=== PATIENT | male | born 1955 | race Caucasian/White ===

== ENCOUNTER 2021-07-07 14:44 | Inpatient (IN) | payer OTHER, SELFPAY ==
[~2021-07-07] VITALS: Ht 177.8 cm; Wt 89.8 kg
[2021-07-07 14:49] VITALS: BP 120/70
[2021-07-07] MEDS ORDERED: MORPHINE SULFATE 4 MG/ML SYR IVP ONE (15:10)
[2021-07-07] MEDS ORDERED: ONDANSETRON 4 MG/2 ML VIAL IVP ONE (15:10)
[2021-07-07] MEDS ORDERED: NACL 0.9% 1,000 ML IV ONE ×2 (15:10→15:55)
--- NOTE | 2021-07-07 15:24 | NUR ---
PT TAKEN TO CT VIA W/C
--- NOTE | 2021-07-07 15:30 | NUR ---
Note undone in EDM - 07/07/21 at 1600 by [email or web address] 65 Y MALE BIBA C/O WEAKNESS, FAILURE TO THRIVE, AND HEADAHCE X3 DAYS. PER EMS PT FELL X3 DAYS AGO AND HAD LESLIE PLACED DUE TO LACERATION OCCURING S/P FALL. LESILE NOTED ON PT SCALP AT THIS TIME. PER EMS SUGAR LEVEL WAS 63 IN ROUTE ORAL GLUCOSE WAS GIVEN AND NO CHANGE IN SUGAR. UPON ARRIVAL SUGAR IS CURRENTLY 80. PER PT HIS PASSED SUDDENLY IN , AND HE HAS FELT DEPRESSED SINCE THEN. PT ADMITS HE IS STILL ABLE TO EAT AND DRINK. SKIN DRY AN INTACT, BUT FINGER COOL TO TOUCH AT THIS TIME. PT DENIES ANY CHEST PAIN, SOB, FEVER/CHILLS. PER FIRE PT HAS ULCERS ON BILATERAL LE. PMH: COPD NKA
--- NOTE | 2021-07-07 15:30 | NUR ---
65 Y MALE BIBA C/O WEAKNESS, FAILURE TO THRIVE, AND HEADAHCE X3 DAYS. PER EMS PT FELL X3 DAYS AGO AND HAD LESLIE PLACED DUE TO LACERATION OCCURING S/P FALL. LESLIE NOTED ON PT SCALP AT THIS TIME. PER EMS SUGAR LEVEL WAS 63 IN ROUTE ORAL GLUCOSE WAS GIVEN AND NO CHANGE IN SUGAR. UPON ARRIVAL SUGAR IS CURRENTLY 80. PER PT HIS PASSED SUDDENLY IN , AND HE HAS FELT DEPRESSED SINCE THEN. PT ADMITS HE IS STILL ABLE TO EAT AND DRINK. SKIN DRY AN INTACT, BUT FINGER COOL TO TOUCH AT THIS TIME. PT DENIES ANY CHEST PAIN, SOB, FEVER/CHILLS. PT HAS ACTIVE WET COUGHT AT THIS TIME PMH: COPD NKA
--- NOTE | 2021-07-07 15:33 | NUR ---
PT RETURNED TO BED [address] VIA W/C
--- NOTE | 2021-07-07 15:50 | NUR ---
[facility] CRAMER AND BLOOD WORK COLLECTED AND HANDED TO ARCHITECTURAL JOB CAPTAIN ANGELICA [facility]
--- NOTE | 2021-07-07 15:53 | NUR ---
INFLUENZA SWAB COLLECTED AND HANDED TO CATTLE INSPECTORCHANDRAKANT DOMINGUEZ
--- NOTE | 2021-07-07 16:00 | NUR ---
PT MOVED TO BED 2 FOR ISOLATION
--- NOTE | 2021-07-07 16:10 | NUR ---
Pt report given to FREDY OLGUIN. Transfer of care at this time.
--- NOTE | 2021-07-07 16:20 | NUR ---
RECEIVED REPORT FROM ESTHER DANIEL, ASSUMED CARE AT THIS TIME.
--- NOTE | 2021-07-07 16:43 | NUR ---
PATIENT STATES UNABLE TO PROVIDE URINE AT THIS TIME.
[2021-07-07 16:47] LABS: ALBUMIN 2.4 g/dL (3.4-5.0); CARBON DIOXIDE 20.4 mmol/L (21-32); CREATININE 1.6 mg/dL (0.6-1.3); POTASSIUM 4.4 mmol/L (3.5-5.1); TOTAL BILIRUBIN 3.9 mg/dL (0.0-1.0)
[2021-07-07 16:56] LABS: EOSINOPHILS % (AUTO) 0.1 % (0.0-4.0); LYMPHOCYTES # (AUTO) 0.3 K/uL (2.0-11.5); MEAN CORPUSCULAR HGB CONC 34 g/dL (33-37); MONOCYTES # (AUTO) 0.7 K/uL (0.8-1.0); RED BLOOD CELL COUNT(AUTO) 6.06 MIL/uL (4.20-6.10)
[2021-07-07 17:07] LABS: BASOPHILS % (AUTO) 0.5 % (0.0-2.0); HEMATOCRIT 58.1 % (36-52); HEMOGLOBIN 19.7 g/dL (12.0-18.0); LYMPHOCYTES % (AUTO) 4.8 % (20.5-51.1); MEAN CORPUSCULAR HEMOGLOBIN 33 pg (27-31); MEAN CORPUSCULAR VOLUME 95.9 fL (80-94); MONOCYTES % (AUTO) 9.7 % (1.7-9.3); NEUTROPHILS # (AUTO) 5.8 K/uL (1.8-7.7); NEUTROPHILS % (AUTO) 84.9 % (42.2-75.2); PLATELET COUNT (AUTO) 224 K/uL (140-450); RED CELL DISTRIBUTION WIDTH 13.6 % (11.6-13.7); WHITE BLOOD COUNT (AUTO) 6.9 K/uL (4.8-10.8)
--- NOTE | 2021-07-07 17:53 | NUR ---
SPOKE WITH PT DAUGHTER ANTONINA FOR PT UPDATES WITH PT PERMISSION.
--- NOTE | 2021-07-07 18:00 | NUR ---
SPOKE WITH PATIENTS DAUGHTER ANTONINA TO OBTAIN PATIENTS AT HOME MEDICATION LIST, STATING SHE WILL CALL BACK WITH LIST.
--- NOTE | 2021-07-07 18:11 | NUR ---
PATIENT LYING IN BED WITH EYES CLOSED, DENIES PAIN OR DISCOMFORT. ON BEDSIDE SOCIAL SCIENCES DEPARTMENT CHAIR, WILL CONTINUE TO MONITOR.
[2021-07-07] MEDS ORDERED: ONDANSETRON 4 MG/2 ML VIAL IVP PRN (18:15)
[2021-07-07] MEDS ORDERED: ACETAMINOPHEN 325 MG TAB PO PRN (18:15)
[2021-07-07] MEDS ORDERED: POTASSIUM CHLORIDE 10 MEQ TABER PO PRN (18:15)
[2021-07-07] MEDS ORDERED: MORPHINE SULFATE 4 MG/ML SYR IVP PRN (18:15)
[2021-07-07] MEDS ORDERED: MAGNESIUM OXIDE 400 MG TAB PO PRN (18:15)
--- NOTE | 2021-07-07 18:30 | NUR ---
PATIENT STATES UNABLE TO PROVIDE URINE AT THIS TIME. PROVIDED WITH URINAL
[2021-07-07] MEDS ORDERED: ASPI-1822 PO (18:38)
[2021-07-07] MEDS ORDERED: FURO-572 PO (18:38)
[2021-07-07] MEDS ORDERED: HYDR-5080 PO (18:38)
[2021-07-07] MEDS ORDERED: METF-350 PO (18:38)
[2021-07-07] MEDS ORDERED: SYN.05 PO (18:38)
--- NOTE | 2021-07-07 18:38 | NUR ---
PATIENTS DAUGHTER CALLED WITH PATIENTS MED LIST, MED REC UPDATED.
--- NOTE | 2021-07-07 18:41 | NUR ---
PATIENTS BLOOD PRESSURE READING 82/59 DR. LOO MADE AWARE.
[2021-07-07] MEDS ORDERED: DEXAMETHASONE 4 MG/ML VIAL IVP ONE (18:45)
--- NOTE | 2021-07-07 19:15 | NUR ---
received report from Karen DANIEL for continuity of care
--- NOTE | 2021-07-07 19:15 | NUR ---
Pt report given to THAIS RN. Transfer of care at this time.
--- NOTE | 2021-07-07 19:38 | NUR ---
paged MD Jaime for orders-- awaiting call back.
--- NOTE | 2021-07-07 19:40 | NUR ---
Spoke with Addison BELLA in regards to BP continously in 80s/50s, increased RR, increased WOB, order of O2 saturation with parameters--- received orders of 500cc bolus one time, O2 >90% , and call back for updates on bp and condition of patient
--- NOTE | 2021-07-07 19:45 | NUR ---
CALLED TO BEDSIDE TO ASSESS PT HE DESAT MID 80s AND WAS FOUND ON 6LNC PT WAS PLACED OMN 8L OXY AND SPO2 SLOWLY CLIMBING AND WAS 90% 5 MIN POST OXY PLACEMENT I ALSO SPOKE W/ DR KENNEDY ( [facility] ) AND WAS INFORMED OF OXY PLACEMENT DR KENNEDY PROVIDED VERBAL ORDER FOR O2 >90% AND REQUESTING TO PLACE [facility] IF NEEDED WILL CONTINUE TO MONITOR
--- NOTE | 2021-07-07 19:45 | NUR ---
patient to CT via [facility]
[2021-07-07] MEDS ORDERED: AZITHROMYCIN 500 MG INJ VIAL IV ONE (19:55)
--- NOTE | 2021-07-07 20:00 | NUR ---
PT RETURN FROM CT
[2021-07-07] MEDS: AZITHROMYCIN 500 MG in DEXTROSE 5% 250 ML IV SCH (20:09)
[2021-07-07] MEDS ORDERED: ALBUMIN HUMAN 25% 50 ML IV SCH (20:30)
[2021-07-07] MEDS: NACL 0.9% 500 ML IV SCH ×2 (20:58→23:40)
[2021-07-07] MEDS ORDERED: cefTRIAXone 1,000 MG VIAL ONE (21:02)
--- NOTE | 2021-07-07 23:07 | NUR ---
Paged Addison BELLA-- awaiting for a call.
--- NOTE | 2021-07-08 00:06 | NUR ---
Paged Addison BELLA-- awaiting for a call.
--- NOTE | 2021-07-08 00:09 | NUR ---
MD Jaime called back, orders recieved to continuously monitor patient BP and report if any changes have occured.
--- NOTE | 2021-07-08 04:21 | NUR ---
Patient appears to be resting comfortably in bed-- semi fowlers with o2 optimizer on patient, and eyes closed. Vital Signs within normal limits. Respirations even and unlabored. Safety measures in place, patient placed on monitor and will continue to monitor patient.
--- NOTE | 2021-07-08 04:36 | NUR ---
Daughter Ghazala called about updates on patient-- provided update on patient condition to daughter (Patient aware)
--- NOTE | 2021-07-08 04:59 | NUR ---
Spoke with MD Jaime about low BP and MAP below 65-- was told to continue observing/monitoring patient and will have scientific software developer and underwater hunter trapper take a look at the patient.
--- NOTE | 2021-07-08 07:20 | NUR ---
Pt report given to Winifred RN. Transfer of care at this time.
[2021-07-08] MEDS: MIDODRINE 5 MG TAB PO SCH ×3 (08:24→19:10)
[2021-07-08] MEDS: DEXAMETHASONE 4 MG/ML VIAL IVP SCH (08:25)
[2021-07-08] MEDS: NACL 0.9% 500 ML IV SCH ×2 (08:32→09:51)
--- NOTE | 2021-07-08 08:57 | NUR ---
PT WAS ENCOURAGED AND ASSISTED TO PROVIDE A URINE SAMPLE. PT IS UNABLE AT THIS TIME. WILL ATTEMPT AT A LATER TIME.
--- NOTE | 2021-07-08 09:01 | NUR ---
PER LAB, PT LAB WORK IS PROCESSING AND WILL BE DONE IN 15 MINS
[2021-07-08 09:26] LABS: ANION GAP 17.4 (8-16); CREATININE 1.5 mg/dL (0.6-1.3); POTASSIUM 4.4 mmol/L (3.5-5.1); TOTAL BILIRUBIN 3.1 mg/dL (0.0-1.0)
[2021-07-08 09:36] LABS: BASOPHILS % (AUTO) 0.6 % (0.0-2.0); HEMATOCRIT 50.7 % (36-52); HEMOGLOBIN 17.1 g/dL (12.0-18.0); LYMPHOCYTES # (AUTO) 0.2 K/uL (2.0-11.5); LYMPHOCYTES % (AUTO) 4.7 % (20.5-51.1); MEAN CORPUSCULAR HEMOGLOBIN 32 pg (27-31); MEAN CORPUSCULAR HGB CONC 34 g/dL (33-37); MEAN CORPUSCULAR VOLUME 95.7 fL (80-94); MONOCYTES # (AUTO) 0.5 K/uL (0.8-1.0); MONOCYTES % (AUTO) 9.5 % (1.7-9.3); NEUTROPHILS # (AUTO) 4.5 K/uL (1.8-7.7); NEUTROPHILS % (AUTO) 85.2 % (42.2-75.2); PLATELET COUNT (AUTO) 220 K/uL (140-450); RED CELL DISTRIBUTION WIDTH 13.4 % (11.6-13.7); WHITE BLOOD COUNT (AUTO) 5.3 K/uL (4.8-10.8)
[2021-07-08] MEDS ORDERED: NACL 0.9% 1,000 ML IV ONE (10:00)
--- NOTE | 2021-07-08 10:00 | NUR ---
Patient appears to be resting comfortably in bed. Vital Signs within normal limits. Respirations even and unlabored. All safety measures in place. Resp even and unlabored, no SOB at this time. Reuben light in reach. All needs met and offered to use the restroom.
[2021-07-08] MEDS ORDERED: SODIUM BICARBONATE 650 MG TAB ONE (10:26)
--- NOTE | 2021-07-08 10:40 | NUR ---
# 16 FR Ruby catheter with ml utilizing sterile technique. Immediate return of ml urine noted. Bedside drainage bag placed below level of bladder. Urine sample collected and sent to lab. Pt tolerated procedure .
[2021-07-08] MEDS: ALBUMIN HUMAN 25% 50 ML IV SCH ×2 (10:54→19:11)
[2021-07-08 11:41] LABS: APPEARANCE,URINE CLEAR (CLEAR); COLOR,URINE ORANGE (YELLOW)
[2021-07-08 11:42] LABS: BILIRUBIN,URINE NEGATIVE (NEGATIVE); BLOOD, URINE 1+ (NEGATIVE); LEUKOCYTE ESTERASE ,URINE NEGATIVE (NEGATIVE); NITRITE, URINE NEGATIVE (NEGATIVE); PH,URINE 5.5 (5.0-9.0); UGLUCOSE NEGATIVE (NEGATIVE)
[2021-07-08 11:44] LABS: WBC,URINE 0-5 /HPF (0-5)
--- NOTE | 2021-07-08 13:16 | NUR ---
Spoke to lab, urine marisa be run for UDS now
[2021-07-08 14:30] LABS: BARBITURATE, URINE NEGATIVE ng/ml (NEG <=200); BENZODIAZEPINE, URINE NEGATIVE ng/mL (NEG <=200); CANNABINOID, URINE NEGATIVE ng/mL (NEG <=50); COCAINE, URINE NEGATIVE ng/mL (NEG <=300); OPIATE, URINE POSITIVE ng/mL (NEG <=2000); PHENCYCLIDINE SCREEN,URINE NEGATIVE ng/mL (NEG <=25)
--- NOTE | 2021-07-08 17:34 | NUR ---
Patient appears to be sleeping comfortably in bed. Vital Signs within normal limits. Respirations even and unlabored.
--- NOTE | 2021-07-08 19:24 | NUR ---
Pt report given to JAMILA DANIEL. Transfer of care at this time.
--- NOTE | 2021-07-08 19:45 | NUR ---
PT IS AWAKE AND ALERT. VSS. PT IS IN STABLE CONDITION. PT GIVEN WATER PER REQUEST. ALL NEEDS MET AT THIS TIME. BED LOCKED IN LOWEST POSITION,SIDE RAILS X2 FOR SAFETY.
[2021-07-08] MEDS ORDERED: AZITHROMYCIN 500 MG INJ VIAL IV ONE (19:59)
[2021-07-08] MEDS: AZITHROMYCIN 500 MG in DEXTROSE 5% 250 ML IV SCH (20:11)
--- NOTE | 2021-07-08 20:21 | NUR ---
REPORT GIVEN TO FREDY MARIE.
--- NOTE | 2021-07-08 20:25 | NUR ---
Patient will be admitted to care of . Admited to TELE. Will go to room 115. Belongings list completed. Report to FREDY MARIE.
--- NOTE | 2021-07-08 20:30 | NUR ---
PT BROUGHT UP TO UNIT [email or web address]. HE IS AOX4 ON 8 LITERS VIA OXYMIZER HE HAS A 20G ON THE RAC HE IS CURRENTLY RUNNING ZITHROMAX AT THIS TIME. REPORT GIVEN VIA PHONE FROM THE ER PT IN STABLE CONDITION. V/S FOLLOWS: T 97.3 P 78 R 20 B/P 100/71 02 95% WITH 8 LITERS SUPPLEMENTAL 02 VIA OXYMIZER. ALL ORDERED PRECAUTIONS IN PLACE.
[2021-07-08 21:00] VITALS: BP 100/71
--- NOTE | 2021-07-08 21:00 | NUR ---
PT GIRLFRIEND WILSON CALLED UP DATED HER WITH PT VERBAL PERMISSION. ALL REQUESTED NEEDS ATTENDED BY STAFF.
--- NOTE | 2021-07-08 21:10 | NUR ---
Note yandy in EDM - 07/08/21 at 2129 by KEESHA Patient will be admitted to care of . Admited to TELE. Will go to room. Belongings list completed. Report to FREDY GODINEZ
[2021-07-08] MEDS: SODIUM BICARBONATE 650 MG TAB PO SCH (23:25)
[2021-07-08] MEDS ORDERED: cefTRIAXone 1,000 MG VIAL ONE (23:40)
--- NOTE | 2021-07-09 | NUR ---
PT AWAKE RESTING IN BED WITH O2 8L PER OXIMIZER. F/C DRAINING CLOUDY ORANGE URINE. ALL SCHEDULED MEDS GIVEN ALL NEEDS ATTENDED TO. CALL LIGHT WITHIN REACH. ALL SAFETY MEASURES IN PLACE .WILL CONTINUE TO OBSERVE.
--- NOTE | 2021-07-09 03:00 | NUR ---
PT RESTING IN BED.ALBUMIN 25% 50ML /HR INFUSED. NO. 2 OUT OF 3 DOSES. WOUND CARE DONE. PICTURES TAKEN AND PUT IN CHART.NO C/O PAIN OR DISTRESS.ALL SAFETY MEASURES IN PLACE. CONTINUE TO OBSERVE. COVID + ALL PRECAUTIONS TAKEN.
[2021-07-09] MEDS: ALBUMIN HUMAN 25% 50 ML IV SCH (03:13)
[2021-07-09] MEDS: DEXAMETHASONE 4 MG/ML VIAL IVP SCH (06:27)
[2021-07-09] MEDS: MIDODRINE 5 MG TAB PO SCH ×3 (06:28→19:40)
--- NOTE | 2021-07-09 06:30 | NUR ---
PT IS AWAKE. MICRO NASAL SWAB FOR MRSA RESULTS STILL PENDING. VSS AFEBRILE. O600 MEDS GIVEN ORDERED. TOLERATED WELL.PT STATES HE IS A BORDERLINE DIABETIC. BS TAKEN FOR A BASELINE= 160. NO C/O PAIN OR DISTRESS. ALL SAFETY MEASURES IN PLACE. PT IS COVID+ NO COUGHING. CONTINUE TO OBSERVE.
--- NOTE | 2021-07-09 07:26 | NUR ---
RECEIVED REPORT FROM BLOOD BANK SUPERVISOR NURSE FOR CONTINUITY OF CARE. PT IS IN BED SLEEPING AT THIS TIME. RESPIRATIONS ARE EVEN AND UNLABORED. NO SIGNS OF DISTRESS NOTED. PT IS ALERT AND ORIENTED X4. ABLE TO VERBALIZE NEEDS TO STAFF. PT IS ON 8L02 WITH 02 SAT AT 96%. PT ABD IS NONTENDER, NONDISTENDED WITH BOWEL SOUNDS PRESENT ON ALL QUADRANTS. PT SKIN IS WARM AND DRY. PT HAS 5 LESLIE TO TOP OF HEAD, NO DRAINAGE NOTED. ALSO PT HAS LLE DIABETIC ULCER NOTED, NO DRAINAGE NOTED. DRESSING INTACT. PT HAS IV TO R AC, 20G, WITH NS INFUSING AT 75ML/HR.NO COMPLAINTS OF PAIN OR DISCOMFORT AT THIS TIME. WILL CONTINUE TO MONITOR. ALL SAFETY MEASURES IN PLACE. CALL LIGHT WITHIN REACH.
[2021-07-09 08:00] VITALS: BP 93/72
--- NOTE | 2021-07-09 08:30 | NUR ---
RECEIVED CALL [facility] FOR THIS PT. HAS CRITICAL LOW HGB LEVEL 5.6/HCT 17/2 TODAY. LEFT MESSAGE TO DR. RENEE. AWAITING FOR RESPONSE.
--- NOTE | 2021-07-09 08:31 | NUR ---
LAB CALLED OTHER NURSE TO GIVE CRITICAL LAB VALUE OF HGB 5.6 AND HCT OF 17.2. OTHER NURSE ENDORSED TO ME. CALLED LAB AND PER LAB, THEY WILL RE-DRAW DUE TO YESTERDAY HGB WAS 17. LAB WILL RE DRAW AND RE CHECK. WILL CALL WITH UPDATE. WILL CONTINUE TO MONITOR.
--- NOTE | 2021-07-09 08:50 | NUR ---
LAB RE CHECKED H&H. CALLED TO GIVE VALUE. H&H IS 16.4/49.0. INFORMED DRHayden WILL CONTINUE TO MONITOR.
[2021-07-09 08:54] LABS: BASOPHILS % (AUTO) 0.2 % (0.0-2.0); HEMATOCRIT 49.3 % (36-52); LYMPHOCYTES # (AUTO) 0.3 K/uL (2.0-11.5); LYMPHOCYTES % (AUTO) 2.9 % (20.5-51.1); MEAN CORPUSCULAR HEMOGLOBIN 32 pg (27-31); MEAN CORPUSCULAR HGB CONC 33 g/dL (33-37); MEAN CORPUSCULAR VOLUME 96.5 fL (80-94); MONOCYTES % (AUTO) 8.4 % (1.7-9.3); NEUTROPHILS % (AUTO) 88.5 % (42.2-75.2); PLATELET COUNT (AUTO) 289 K/uL (140-450); RED BLOOD CELL COUNT(AUTO) 5.12 MIL/uL (4.20-6.10); RED CELL DISTRIBUTION WIDTH 13.8 % (11.6-13.7); WHITE BLOOD COUNT (AUTO) 11.3 K/uL (4.8-10.8)
[2021-07-09 09:05] LABS: HEMOGLOBIN 16.4 g/dL (12.0-18.0)
--- NOTE | 2021-07-09 09:05 | NUR ---
PATIENT HAS BEEN SCREENED AND CATEGORIZED HIGH NUTRITION RISK. PATIENT WILL BE SEEN WITHIN 1-2 DAYS OF ADMISSION. 07/08/21-07/09/21 REVIEWED BY LEANNA OLIVE[address]A RD
[2021-07-09] MEDS ORDERED: COMMUNICATION ORDER MC SCH (09:10)
[2021-07-09 09:17] LABS: ALBUMIN 2.7 g/dL (3.4-5.0); ANION GAP 14.5 (8-16); CARBON DIOXIDE 21.3 mmol/L (21-32); CREATININE 1.4 mg/dL (0.6-1.3); POTASSIUM 4.8 mmol/L (3.5-5.1); TOTAL BILIRUBIN 2.9 mg/dL (0.0-1.0)
[2021-07-09] MEDS: SODIUM BICARBONATE 650 MG TAB PO SCH (09:20)
--- NOTE | 2021-07-09 09:20 | NUR ---
ADMINISTERED ALL SCHEDULED MEDICATIONS. EDUCATED PT ON MEDS ADMINISTERED. PT VERBALIZED AN UNDERSTANDING OF ALL INFORMATION PROVIDED. WILL CONTINUE TO MONITOR.
[2021-07-09] MEDS: BARICITINIB PO SCH (09:56)
--- NOTE | 2021-07-09 11:15 | NUR ---
DID ROUNDS ON PT. PT IS IN BED ON THE PHONE AT THIS TIME. RESPIRATIONS ARE EVEN AND UNLABORED. PT CONTINUES ON 8L 02 WITH 02 SAT AT 96%. NO SIGNS OF DISTRESS NOTED. NO COMPLAINTS OF PAIN OR DISCOMFORT. WILL CONTINUE TO MONITOR.
[2021-07-09 12:00] VITALS: BP 100/68
--- NOTE | 2021-07-09 13:15 | NUR ---
WOUND CARE EVALUATION NOTES: REASON FOR EVALUATION: LEFT LOWER EXTREMITY WOUND WOUND ASSESSMENT COMPLETED ON THIS 89 Y/O MALE ADMITTED TO [facility] UN[facility] FOR COVID POSITIVE, SEPSIS, AND FRANSICO. PATIENT IS FROM HOME. PAST MEDICAL HISTORY INCLUDES COPD, DM. ALL ABOVE INFORMATION WAS OBTAINED FROM THE ADMISSION H&P. LABS ARE WBC 11.3, H/H 16.4/49.3, GLUCOSE 138, ALBUMIN 2.7. PATIENT IS AAOX3, VERBAL, APPROPRIATE AFFECT. SKIN IS WARM TO TOUCH. ORAL MUCOSAL MEMBRANES DRY. AMBULATES AND TURNS INDEPENDENTLY. PLAN OF WOUND CARE DISCUSSED WITH PATIENT AND PRIMARY RN. PATIENT VERBALIZED UNDERSTANDING. PATIENT ADMITTED WITH LEFT LOWER EXTREMITY WOUND AND TOP ANTERIOR HEAD WOUND. COMORBIDITIES RELATED TO FURTHER SKIN BREAKDOWN SUCH DECREASED FUNCTIONAL ABILITY, LOW ALBUMIN LEVEL, AND HISTORY OF DM. INTEGUMENTARY: - LEFT LOWER EXTREMITY DIABETIC ULCER MEASURING 3 X 2 X 0 CM. WOUND BED PINK, NO DRAINAGE, NO ODOR, NO PAIN. RUDOLPH-WOUND INTACT, PINK. - TOP ANTERIOR HEAD LACERATION WITH LESLIE INTACT, MEASURING 4 X 0.2 X 0 CM S/P FALL BEFORE ADMISSION TO HOSPITAL. WOUND BED CLOSED WITH LESLIE INTACT, NO DRAINAGE, NO ODOR. RUDOLPH-WOUND INTACT, PINK. RECOMMENDATIONS: - LEFT LOWER EXTREMITY DIABETIC ULCER - CLEANSE WITH NS, PAT DRY, APPLY ADAPTIC DRESSING, COVER WITH DRY DRESSING AND SECURE WITH ISLAND DRESSING DAILY AND PRN IF SOILED. - TOP ANTERIOR HEAD LACERATION WITH LESLIE INTACT - CLEANSE WITH NS, PAT DRY, AND LEAVE SYSTEM SALES CONSULTANT DAILY AND PRN IF SOILED. - PROVIDE ASSISTANCE WITH TURNING Q2H AND ADLS THROUGHOUT THE DAY NEEDED. - KEEP SKIN DRY AND CLEAN AT ALL TIMES. - RD CONSULT RECOMMENDATIONS DISCUSSED WITH PRIMARY RN. WILL FOLLOW-UP PATIENT Q7-10 DAYS AND PRN. PLEASE CONTACT WOUND CARE NURSE FOR ANY CONCERNS AND CHANGES IN WOUND CONDITION.
--- NOTE | 2021-07-09 13:40 | NUR ---
ADMINISTERED AFTERNOON MEDICATIONS. PT IS IN BED AT THIS TIME EATING. FAMILY IS VISITING VIA WINDOW. PT APPEARS IN GOOD SPIRITS. NO COMPLAINTS OF SOB, PAIN, OR DISCOMFORT. WILL CONTINUE TO MONITOR.
[2021-07-09] MEDS: NACL 0.9% 1,000 ML IV SCH (13:42)
--- NOTE | 2021-07-09 15:28 | NUR ---
07/09/21 RD INITIAL ASSESSMENT COMPLETED PLEASE REFER TO NUTRITION ASSESSMENT UNDER CARE ACTIVITY FOR ESTIMATED NUTRITIONAL NEEDS. 1. CONTINUE CARDIAC DIET TOLERATED -RECOMMEND GLUCERNA BID IF PO INTAKE < 75% 2. RD TO FOLLOW-UP 3-5 DAYS, MODERATE RISK LEANNA OLIVEIRA, RD
[2021-07-09 16:00] VITALS: BP 101/69
--- NOTE | 2021-07-09 16:25 | NUR ---
DID ROUNDS ON PT. PT IS IN BED SLEEPING AT THIS TIME. RESPIRATIONS ARE EVEN AND UNLABORED. NO SIGNS OF DISTRESS NOTED. NO COMPLAINTS OF SOB, PAIN, OR DISCOMFORT. WILL CONTINUE TO MONITOR.
--- NOTE | 2021-07-09 19:35 | NUR ---
ENDORSED PT TO HOSPICE PHYSICIAN NURSE FOR CONTINUITY OF CARE. RESPIRATIONS ARE EVEN AND UNLABORED. NO SIGNS OF DISTRESS NOTED. NO COMPLAINTS OF PAIN OR DISCOMFORT. ALL NEEDS MET THROUGHOUT SHIFT. PT IS STABLE.
[2021-07-09] MEDS: BLOOD GLUCOSE MONITORING 1 DEV DEV FS SCH (21:00)
[2021-07-09] MEDS: AZITHROMYCIN 500 MG in DEXTROSE 5% 250 ML IV SCH (22:09)
[2021-07-09 23:38] VITALS: BP 98/59
[2021-07-10] MEDS: GAUZE TP SCH ×2 (01:00→12:55)
[2021-07-10 04:30] VITALS: BP 112/61
--- NOTE | 2021-07-10 05:22 | NUR ---
The patient O2 sat. is 96 on Hf NC 8l. no complain of pain or anxiety . he sleeps comfortable in his bed. comfrt and safety measures are provided.
[2021-07-10] MEDS: MIDODRINE 5 MG TAB PO SCH ×3 (06:13→18:15)
[2021-07-10] MEDS: DEXAMETHASONE 4 MG/ML VIAL IVP SCH (06:13)
[2021-07-10] MEDS: NACL 0.9% 1,000 ML IV SCH (06:14)
[2021-07-10] MEDS: BLOOD GLUCOSE MONITORING 1 DEV DEV FS SCH ×4 (06:14→21:54)
[2021-07-10 07:07] LABS: BASOPHILS # (AUTO) 0.1 K/uL (0.00-0.22); BASOPHILS % (AUTO) 1.1 % (0.0-2.0); HEMATOCRIT 45.5 % (36-52); HEMOGLOBIN 15.1 g/dL (12.0-18.0); LYMPHOCYTES # (AUTO) 0.3 K/uL (2.0-11.5); MEAN CORPUSCULAR HEMOGLOBIN 32 pg (27-31); MEAN CORPUSCULAR HGB CONC 33 g/dL (33-37); MEAN CORPUSCULAR VOLUME 95.8 fL (80-94); MONOCYTES # (AUTO) 0.7 K/uL (0.8-1.0); MONOCYTES % (AUTO) 10.9 % (1.7-9.3); NEUTROPHILS # (AUTO) 5.6 K/uL (1.8-7.7); PLATELET COUNT (AUTO) 293 K/uL (140-450); RED BLOOD CELL COUNT(AUTO) 4.75 MIL/uL (4.20-6.10); RED CELL DISTRIBUTION WIDTH 13.2 % (11.6-13.7); WHITE BLOOD COUNT (AUTO) 6.7 K/uL (4.8-10.8)
--- NOTE | 2021-07-10 07:30 | NUR ---
RECEIVED PT ROM NIGHT RN, PT IS ALERT AND ORIENTED, BALLARD CATHETER IN PLACE, PT IS ON OXYMIZER AT 8L O2, SIDE RAILS ARE UP ANDS CALL LIGHT WITHIN REACH, ON ISOLATION FOR COVID POSITIVE, IV LINE NOTED ON THERAC G. 20 WITH NS INFUSING AT 60ML/HR, NO SIGN OF DISTRESS NOTED AND WILL CONTINUE TO MONITOR PT.
[2021-07-10 07:47] LABS: ALBUMIN 2.4 g/dL (3.4-5.0); ANION GAP 13.4 (8-16); CARBON DIOXIDE 21.2 mmol/L (21-32); CREATININE 1.1 mg/dL (0.6-1.3); POTASSIUM 4.6 mmol/L (3.5-5.1); TOTAL BILIRUBIN 2.2 mg/dL (0.0-1.0)
[2021-07-10 08:00] VITALS: BP 99/63
[2021-07-10] MEDS: BARICITINIB PO SCH (10:34)
[2021-07-10 12:00] VITALS: BP 109/79
[2021-07-10] MEDS: INSULIN LISPRO SLIDING SCALE 100 UNITS/ML VIAL SUBQ PRN ×2 (12:31→17:30)
--- NOTE | 2021-07-10 12:31 | NUR ---
PT WAS GIVEN 2 UNITS INSULIN ON THE RT DELTOID FOR BLOOD GLUCOSE OF 158.
--- NOTE | 2021-07-10 14:30 | NUR ---
PT IS SLEEPING NOW, SATURATING AT 94%
[2021-07-10 16:00] VITALS: BP 105/76
--- NOTE | 2021-07-10 16:39 | NUR ---
DC PLANNIN YRS OLD MALE PATIENT WAS ADMITTED FROM HOME WITH A DX OF COVID , FRANSICO AND SEPSIS. PATIENT HAS A HX OF COPD. CXR SHOWED BILATERAL MODERATED PATCHY CONSOLIDATION SUSPICIOUS FOR MULTIFOCAL PNEUMONIA. CT HEAD SHOWED NO EVIDENCE OF ACUTE INTRACRANIAL HEMORRHAGE. CT CHEST NO PE. RAPID COVID ART POSITIVE. ON 8L OXYMIZER SATING 93% ADMINISTERED IVF, IV ABX AZITHROMYCIN AND ROCEPHIN. CONSULTED WITH NEPHRO, ID AND PULMO. DC PLAN PER PATIENT RESPOND TO THE TREATMENT. CM TO FOLLOW Addendum: 07/11/21 at 1645 by Ml Caballero CM DC PLANNING: ORDER RECEIVED FOR HOME O2, CM ASKED THE PATIENTS RN TO GET O2 SATS ON RA. IF [facility] IS UNABLE TO PROVIDE O2, PER [facility]ENK[facility] AT [facility] ([phone]), [facility] ([phone][facility] OR [facility] ([phone]) CAN BE USED. CM WILL FOLLOW FOR NEEDS.
--- NOTE | 2021-07-10 16:57 | NUR ---
PT'S BLOOD GLUCOSE WAS CHECKED AND IS 162, WILL GIVE COVERAGE OF 2 UNITS OF INSULIN.
--- NOTE | 2021-07-10 19:43 | NUR ---
PT PRESENTS LAYING TURNED ON HIS LEFT SIDE WATCHING TV W/ NO SIGNS OF RESPIRATORY DISTRESS SATING 91% ON 4LPM OXYMIZER. BS CLR/DIM WILL CONTINUE TO MONITOR.
--- NOTE | 2021-07-10 19:45 | NUR ---
ENDORSED PT TO NIGHT RN FOR CONTINUITY OF CARE.
[2021-07-10 20:00] VITALS: BP 118/73
[2021-07-10] MEDS: ENOXAPARIN 40 MG/0.4 ML SYR SUBQ SCH (20:49)
[2021-07-10] MEDS: AZITHROMYCIN 500 MG in DEXTROSE 5% 250 ML IV SCH (20:50)
[2021-07-11 00:05] VITALS: BP 102/62
[2021-07-11] MEDS: GAUZE TP SCH ×2 (01:26→13:37)
[2021-07-11 04:00] VITALS: BP 115/69
[2021-07-11] MEDS: NACL 0.9% 1,000 ML IV SCH (04:38)
[2021-07-11] MEDS: DEXAMETHASONE 4 MG/ML VIAL IVP SCH (06:05)
[2021-07-11] MEDS: MIDODRINE 5 MG TAB PO SCH ×2 (06:05→13:37)
[2021-07-11] MEDS: BLOOD GLUCOSE MONITORING 1 DEV DEV FS SCH ×4 (06:45→21:58)
--- NOTE | 2021-07-11 06:46 | NUR ---
the patient vitals are stable. breathing is even and unlabored. his O2 SAT is 935 on 4l oxymiser. he is alert oriented x4 .no complain for pain or anxiety . comfort and safety measures are provided.
[2021-07-11 07:08] LABS: BASOPHILS % (AUTO) 0.1 % (0.0-2.0); EOSINOPHILS % (AUTO) 0.1 % (0.0-4.0); HEMATOCRIT 45.7 % (36-52); HEMOGLOBIN 15.7 g/dL (12.0-18.0); LYMPHOCYTES # (AUTO) 0.3 K/uL (2.0-11.5); LYMPHOCYTES % (AUTO) 5.2 % (20.5-51.1); MEAN CORPUSCULAR HEMOGLOBIN 33 pg (27-31); MEAN CORPUSCULAR HGB CONC 34 g/dL (33-37); MEAN CORPUSCULAR VOLUME 94.6 fL (80-94); MONOCYTES # (AUTO) 0.9 K/uL (0.8-1.0); MONOCYTES % (AUTO) 14.8 % (1.7-9.3); NEUTROPHILS # (AUTO) 4.8 K/uL (1.8-7.7); NEUTROPHILS % (AUTO) 79.8 % (42.2-75.2); PLATELET COUNT (AUTO) 337 K/uL (140-450); RED BLOOD CELL COUNT(AUTO) 4.84 MIL/uL (4.20-6.10); RED CELL DISTRIBUTION WIDTH 13.4 % (11.6-13.7)
[2021-07-11 07:39] LABS: PHOSPHORUS 2.8 mg/dL (2.5-4.9)
[2021-07-11 07:40] LABS: ALBUMIN 2.4 g/dL (3.4-5.0); CARBON DIOXIDE 21.7 mmol/L (21-32); CREATININE 1.1 mg/dL (0.6-1.3); POTASSIUM 4.7 mmol/L (3.5-5.1); TOTAL BILIRUBIN 2.4 mg/dL (0.0-1.0)
[2021-07-11 08:00] VITALS: BP 118/87
[2021-07-11 08:08] LABS: MAGNESIUM 1.8 mg/dL (1.8-2.4)
[2021-07-11] MEDS: BARICITINIB PO SCH (09:00)
[2021-07-11] MEDS: ENOXAPARIN 40 MG/0.4 ML SYR SUBQ SCH ×2 (09:00→21:58)
--- NOTE | 2021-07-11 10:27 | NUR ---
SCHEDULED MEDICATIONS GIVEN ORDERED, ASSISTED PATENT LEGAL ASSISTANT IN AM CARE. WILL CONTINUE TO MONITOR
[2021-07-11] MEDS: INSULIN LISPRO SLIDING SCALE 100 UNITS/ML VIAL SUBQ PRN (13:37)
--- NOTE | 2021-07-11 13:37 | NUR ---
SCHEDULED MEDICATIONS DUE GIVEN. WILL CONTINUE TO MONITOR.
[2021-07-11 16:00] VITALS: BP 109/80
--- NOTE | 2021-07-11 17:37 | NUR ---
ROOM AIR OXYGEN SATURATION 85-86% RESTING. OXYGEN SATURATION STANDING UP AND TAKING FEW STEPS ON ROOM AIR 82-84%. BACK TO RESTING SITTING DOWN IN BED AT REST WITH OXYGEN 3L VIA OXIMIZER, OXYGEN SATURATION 92-94%.
[2021-07-11] MEDS: AZITHROMYCIN 500 MG in DEXTROSE 5% 250 ML IV SCH (18:48)
--- NOTE | 2021-07-11 18:58 | NUR ---
PT IN BED AWAKE. ON O2 VIA OXIMIZER AT 3L. DENIES PAIN AT THIS TIME. ALL SAFETY MEASURES IN PLACE. CALL LIGHT WITHIN REACH.
--- NOTE | 2021-07-11 19:25 | NUR ---
GAVE REPORT TO ASSISTANT PROFESSOR OF THEATER NURSE FOR CONTINUITY OF CARE. PATIENT IN STABLE CONDITION.
[2021-07-12] VITALS: BP 113/76
[2021-07-12] MEDS: GAUZE TP SCH ×2 (01:00→13:00)
[2021-07-12] MEDS: DEXAMETHASONE 4 MG/ML VIAL IVP SCH (05:23)
[2021-07-12 07:16] LABS: BASOPHILS % (AUTO) 0.2 % (0.0-2.0); EOSINOPHILS % (AUTO) 0.1 % (0.0-4.0); HEMATOCRIT 50.4 % (36-52); LYMPHOCYTES # (AUTO) 0.3 K/uL (2.0-11.5); LYMPHOCYTES % (AUTO) 4.3 % (20.5-51.1); MEAN CORPUSCULAR HEMOGLOBIN 32 pg (27-31); MEAN CORPUSCULAR HGB CONC 34 g/dL (33-37); MONOCYTES # (AUTO) 0.7 K/uL (0.8-1.0); MONOCYTES % (AUTO) 9.6 % (1.7-9.3); NEUTROPHILS # (AUTO) 6.5 K/uL (1.8-7.7); NEUTROPHILS % (AUTO) 85.8 % (42.2-75.2); PLATELET COUNT (AUTO) 346 K/uL (140-450); RED BLOOD CELL COUNT(AUTO) 5.25 MIL/uL (4.20-6.10); RED CELL DISTRIBUTION WIDTH 13.4 % (11.6-13.7); WHITE BLOOD COUNT (AUTO) 7.5 K/uL (4.8-10.8)
--- NOTE | 2021-07-12 07:20 | NUR ---
RECEIVED REPORT FROM FORENSIC COMPUTER EXAMINER NURSE FOR CONTINUITY OF CARE. BREATHING SYMMETRICAL. NO S/S OF DISTRESS. CALL LIGHT IN REACH. ALL SAFETY MEASURES IN PLACE
[2021-07-12 07:22] LABS: MAGNESIUM 1.9 mg/dL (1.8-2.4); PHOSPHORUS 2.8 mg/dL (2.5-4.9)
[2021-07-12 07:28] LABS: ALBUMIN 2.5 g/dL (3.4-5.0); ANION GAP 14.7 (8-16); CARBON DIOXIDE 25.3 mmol/L (21-32); CREATININE 1.2 mg/dL (0.6-1.3); TOTAL BILIRUBIN 2.1 mg/dL (0.0-1.0)
[2021-07-12 08:00] VITALS: BP 115/84
[2021-07-12] MEDS: BLOOD GLUCOSE MONITORING 1 DEV DEV FS SCH ×4 (08:01→20:59)
[2021-07-12] MEDS: BARICITINIB PO SCH (09:00)
[2021-07-12] MEDS: ENOXAPARIN 40 MG/0.4 ML SYR SUBQ SCH ×2 (09:00→20:59)
--- NOTE | 2021-07-12 10:00 | NUR ---
ALL SCHEDULED MEDICATIONS GIVEN PER MD ORDER. ON O2 VIA OXIMIZER AT 4L AND TOLERATING WELL. BREATHING EVEN AND UNLABORED. DENIES PAIN AT THIS TIME. WILL CONTINUE TO MONITOR
[2021-07-12] MEDS: INSULIN LISPRO SLIDING SCALE 100 UNITS/ML VIAL SUBQ PRN (12:24)
[2021-07-12] MEDS ORDERED: DEXA6TAB8 PO (15:24)
[2021-07-12 16:00] VITALS: BP 108/73
--- NOTE | 2021-07-12 16:14 | NUR ---
BALLARD CATHETER DISCONTINUED PER MD ORDER. DENIES PAIN OR DISCOMFORT AT THIS TIME. O2 AT 3L VIA OXIMIZER AND SATING AT 92-93% BREATHING EVEN AND UNLABORED. HOB KEPT ELEVATED. CALL LIGHT WITHIN REACH. ALL SAFETY MEASURES IN PLACE
--- NOTE | 2021-07-12 18:41 | NUR ---
PT RESTING IN BED. NOTIFIED THAT PT WAS ORDERED TO EVAL TOMORROW FOR SNF PLACEMENT. NO S/S OF DISTRESS. CALL LIGHT IN REACH. ALL SAFETY MEASURES IN PLACE. DAUGHTER FLAQUITO UPDATED,
--- NOTE | 2021-07-12 19:10 | NUR ---
RECEIVED BEDSIDE REPORT FROM MORNING SHIFT NURSE FOR CONTINUITY OF CARE. PATIENT IS STABLE IN BED. A&OX3 WITH SOME CONFUSION NOTED. VERBALLY RESPONSIVE AND ABLE TO COMMUNICATE NEEDS. DENIES PAIN AT THIS TIME. PATIENT IS ON DROPLET PRECAUTION DUE TO DX OF COVID. CORRECT SIGNS AND PPE OBSERVED. RESPIRATIONS EVEN AND UNLABORED. ON 3L VIA NC WITH AN O2 SATURATION OF 92% WITH NO APPARENT S/SX OF ACUTE DISTRESS. IV SITE TO THE RAC 20G IS INTACT, PATENT, AND ASYMPTOMATIC SL. PATIENT HAS A BEDSIDE URINAL. WOUND CARE FOR HEAD AND LLE ENDORSED. PLAN OF CARE AND WHITE COMMUNICATION BOARD UPDATED. BED IN LOW/LOCKED POSITION. CALL LIGHT WITHIN REACH. PATIENT IS ENCOURAGED TO CALL FOR ANY NEEDS/ASSISTANCE. WILL CONTINUE TO MONITOR.
--- NOTE | 2021-07-12 19:47 | NUR ---
ENDORSED PT TO DISC JOCKEY NURSE
[2021-07-12 20:00] VITALS: BP 115/75
[2021-07-12] MEDS: AZITHROMYCIN 500 MG in DEXTROSE 5% 250 ML IV SCH (20:43)
--- NOTE | 2021-07-12 21:10 | NUR ---
ADMINISTERED SCHEDULED MEDICATIONS PER MD ORDER. TOLERATED WELL. NO ADVERSE REACTION NOTED. CHECKED PATIENT'S BLOOD SUGAR AND NO COVERAGE NEEDED PER PRN ORDER. PATIENT DENIES PAIN. RESPIRATIONS EVEN AND UNLABORED WITH NO APPARENT S/SX OF ACUTE DISTRESS. SNACKS PROVIDED. WHITE COMMUNICATION BOARD UPDATED. ALL SAFETY MEASURES IN PLACE. CALL LIGHT WITHIN REACH. WILL CONTINUE TO MONITOR.
--- NOTE | 2021-07-12 21:30 | NUR ---
Patient's Plan of Care was discussed and reviewed with FILE CLERK DATA ENTRY: GRETCHEN TORRES
--- NOTE | 2021-07-12 23:10 | NUR ---
CHECKED PATIENT. STABLE AND ASLEEP. CHEST IS RISING AND FALLING SYMMETRICALLY. RESPIRATIONS EVEN AND UNLABORED WITH NO APPARENT S/SX OF ACUTE DISTRESS. WHITE COMMUNICATION BOARD UPDATED. ALL SAFETY MEASURES IN PLACE. CALL LIGHT WITHIN REACH. WILL CONTINUE TO MONITOR.
--- NOTE | 2021-07-13 01:10 | NUR ---
ROUNDED ON PATIENT. STABLE AND ASLEEP. CHEST IS RISING AND FALLING SYMMETRICALLY. RESPIRATIONS EVEN AND UNLABORED WITH NO APPARENT S/SX OF ACUTE DISTRESS. WHITE COMMUNICATION BOARD UPDATED. ALL SAFETY MEASURES IN PLACE. CALL LIGHT WITHIN REACH. WILL CONTINUE TO MONITOR.
[2021-07-13] MEDS: GAUZE TP SCH ×2 (01:16→13:25)
--- NOTE | 2021-07-13 05:10 | NUR ---
PROVIDED SKIN CARE. TOLERATED WELL. PATIENT DENIES PAIN. FIXED PATIENT'S NC AND CONNECTED BACK TO OXIMIZER 3L. PATIENT IS SATURATING AT 91%. RESPIRATIONS EVEN AND UNLABORED WITH NO APPARENT S/SX OF ACUTE DISTRESS. WHITE COMMUNICATION BOARD UPDATED. ALL SAFETY MEASURES IN PLACE. CALL LIGHT WITHIN REACH. WILL CONTINUE TO MONITOR.
[2021-07-13] MEDS: DEXAMETHASONE 4 MG/ML VIAL IVP SCH (06:20)
[2021-07-13] MEDS: BLOOD GLUCOSE MONITORING 1 DEV DEV FS SCH ×3 (06:30→16:30)
--- NOTE | 2021-07-13 07:15 | NUR ---
ENDORSED PATIENT TO MORNING SHIFT NURSE FOR CONTINUITY OF CARE. PATIENT IS STABLE.
--- NOTE | 2021-07-13 07:20 | NUR ---
RECEIVED REPORT FROM LIVESTOCK RANCHER NURSE. PATIENT RESTING IN BED. NO S/S OF DISTRESS. ALL SAFETY PRECAUTIONS IN PLACE.
[2021-07-13 07:27] LABS: BASOPHILS % (AUTO) 0.4 % (0.0-2.0); HEMATOCRIT 48.4 % (36-52); HEMOGLOBIN 16.5 g/dL (12.0-18.0); LYMPHOCYTES # (AUTO) 0.3 K/uL (2.0-11.5); LYMPHOCYTES % (AUTO) 3.7 % (20.5-51.1); MEAN CORPUSCULAR HEMOGLOBIN 32 pg (27-31); MEAN CORPUSCULAR HGB CONC 34 g/dL (33-37); MEAN CORPUSCULAR VOLUME 94.4 fL (80-94); MONOCYTES # (AUTO) 0.9 K/uL (0.8-1.0); MONOCYTES % (AUTO) 11.8 % (1.7-9.3); NEUTROPHILS # (AUTO) 6.7 K/uL (1.8-7.7); NEUTROPHILS % (AUTO) 84.1 % (42.2-75.2); PLATELET COUNT (AUTO) 346 K/uL (140-450); RED BLOOD CELL COUNT(AUTO) 5.12 MIL/uL (4.20-6.10); RED CELL DISTRIBUTION WIDTH 13.4 % (11.6-13.7)
[2021-07-13 07:28] LABS: ANION GAP 12.7 (8-16); CARBON DIOXIDE 25.8 mmol/L (21-32); CREATININE 1.1 mg/dL (0.6-1.3); POTASSIUM 4.5 mmol/L (3.5-5.1)
[2021-07-13 08:00] VITALS: BP 112/69
[2021-07-13] MEDS: ENOXAPARIN 40 MG/0.4 ML SYR SUBQ SCH (09:00)
[2021-07-13] MEDS: BARICITINIB PO SCH (09:00)
--- NOTE | 2021-07-13 11:00 | NUR ---
PER PT EVAL- PT IS INDEPENDENT AND AMBULATING WELL. CLEARED TO GO HOME WITH HOME HEALTH.
--- NOTE | 2021-07-13 11:54 | NUR ---
07/13/21 RD FOLLOW UP COMPLETED. PLEASE REFER TO NUTRITION ASSESSMENT UNDER CARE ACTIVITY FOR ESTIMATED NUTRITIONAL NEEDS. 1. CONTINUE CARDIAC DIET TOLERATED -RECOMMEND GLUCERNA BID IF PO INTAKE < 75% RD TO FOLLOW-UP IN 5-7 DAYS PATIENT IS LOW RISK. GEORGES WILLINGHAM, RD
[2021-07-13] MEDS: INSULIN LISPRO SLIDING SCALE 100 UNITS/ML VIAL SUBQ PRN (12:15)
--- NOTE | 2021-07-13 15:30 | NUR ---
UPDATED PATIENT'S FAMILY IN REGARDS TO STATUS. PATIENT'S DAUGHTER'S WERE CONCERNED WITH PICKING HIM UP AND BEING EXPOSED TO COVID. I EDUCATED THE FAMILY AND THEY VERBALIZED UNDERSTANDING. PATIENT STATES HE WILL CALL ANOTHER FAMILY MEMBER TO PICK HIM UP. MARKER MACHINE WILL FOLLOW UP FRIDAY FOR HOME HEALTH.
[2021-07-13 16:00] VITALS: BP 107/72
[2021-07-13 18:13] VITALS: BP 115/70
--- NOTE | 2021-07-13 20:19 | NUR ---
DISCHARGED PATIENT VIA WHEELCHAIR OFF UNIT. PATIENT STABLE.
== END 2021-07-14 12:34 | disposition home or self-care (01) | DRG 137 ==
LOC: MED 14:44 → MTU 18:11
PROVIDERS: ADMIT Student in an Organized Health Care Education/Training Program; ATTEND Student in an Organized Health Care Education/Training Program
DX: U07.1 COVID-19 (principal); J96.01 Acute respiratory failure with hypoxia; J12.82 Pneumonia due to coronavirus disease 2019; R65.11 Systemic inflammatory response syndrome (SIRS) of non-infectious origin with acute organ dysfunction; E87.2 Acidosis; D75.1 Secondary polycythemia; E11.9 Type 2 diabetes mellitus without complications; I10 Essential (primary) hypertension; L97.921 Non-pressure chronic ulcer of unspecified part of left lower leg limited to breakdown of skin; E78.5 Hyperlipidemia, unspecified; E03.9 Hypothyroidism, unspecified; F15.10 Other stimulant abuse, uncomplicated; I27.20 Pulmonary hypertension, unspecified; I07.1 Rheumatic tricuspid insufficiency; N17.9 Acute kidney failure, unspecified; J44.0 Chronic obstructive pulmonary disease with (acute) lower respiratory infection; Z79.899 Other long term (current) drug therapy
CPT/HCPCS: 36415; 70450; 71045; 71275; 80048; 80053; 80305; 81001; 82948; 83605; 83690; 83735; 83880; 84100; 84300; 84484; 85025; 87081; 93005; 96361; 96374; 96375; 97116; 97163-GP; 99285; G0482; J0456; J0696; J1100; J1644; J1650; J2270; J2405; J7060; P9046; Q0092; Q9967